=== PATIENT | male | born 1960 | race Caucasian/White ===

== ENCOUNTER → 2017-07-28 | Outpatient (CLI) | payer OTHER ==
--- NOTE | 2017-07-28 18:34 | US ---
LOWER EXTREMITY VENOUS INSUFFICIENCY SIDE PERFORMED: LEFT 1) Color flow is present and patency is documented in the following vessels. No DVT or SVT is noted . EIV Common Femoral Vein Deep Femoral Vein Femoral Vein Popliteal Vein Proximal Calf Veins Greater Saph Vein Upper Small Saph Vein 2) There is venous reflux noted at the following venous levels: Left EIV, CFV, FV Enlarged lymph nodes noted in groin. IMPRESSION: No evidence of deep venous thrombosis. 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
== END | disposition home or self-care (01) ==
LOC: RADUSMAIN 17:38
PROVIDERS: ATTEND Family Medicine
DX: M79.662 Pain in left lower leg (principal); M79.89 Other specified soft tissue disorders